=== PATIENT | female | born 1975 | race African-American/Black ===

== ENCOUNTER 2017-10-19 15:31 | Emergency (ER) | payer SELFPAY ==
[~2017-10-19] VITALS: Ht 160 cm; Wt 83.2 kg
[2017-10-19 17:58] VITALS: BP 182/94
[2017-10-19] MEDS ORDERED: NORCO 5/3251 TABLET PO (18:06)
[2017-10-19] MEDS ORDERED: PEN-VEE K,VEET500 MG PO (18:06)
== END 2017-10-19 18:13 | disposition home or self-care (01) ==
LOC: EME 15:31
DX: K04.7 Periapical abscess without sinus (principal); K02.9 Dental caries, unspecified; K03.81 Cracked tooth; R51 Headache; R53.1 Weakness
CPT/HCPCS: 99281; 99284